=== PATIENT | male | born 2000 | race Two or more races ===

== ENCOUNTER 2024-01-20 23:35 | Emergency (ER) | payer OTHER ==
[~2024-01-20] VITALS: Ht 175.3 cm; Wt 68.2 kg
[2024-01-20 23:53] VITALS: BP 120/76; PULSE 76; RESP 16; O2SAT 97
[2024-01-21 00:45] VITALS: TEMP 96
== END 2024-01-21 00:47 ==
LOC: ER 23:35
DX: Z04.1 Encounter for examination and observation following transport accident (principal); F17.200 Nicotine dependence, unspecified, uncomplicated; V89.2XXA Person injured in unspecified motor-vehicle accident, traffic, initial encounter; Y93.89 Activity, other specified; Y92.89 Other specified places as the place of occurrence of the external cause; Y99.8 Other external cause status
CPT/HCPCS: 99283